=== PATIENT | female | born 1955 | race Caucasian/White ===

== ENCOUNTER → 2018-07-28 | Outpatient (CLI) | payer BC ==
[~2018-07-28] MED LIST: MULTTAB61 PO
== END | disposition home or self-care (01) ==
LOC: LAB 14:32
PROVIDERS: ATTEND Urology
DX: N39.0 Urinary tract infection, site not specified (principal)
CPT/HCPCS: 87086

== ENCOUNTER → 2018-08-03 | Outpatient (CLI) | payer BC | END | disposition home or self-care (01) | LOC: LAB 16:13 | PROVIDERS: ATTEND Urology | DX: N39.0 Urinary tract infection, site not specified (principal) | CPT/HCPCS: 87086 ==

== ENCOUNTER → 2020-10-03 | Outpatient (CLI) | payer OTHER ==
[~2020-10-03] MED LIST changes: +MULT-1018 PO; -MULTTAB61 PO
== END | disposition home or self-care (01) ==
LOC: LAB 18:02
PROVIDERS: ATTEND Nurse Practitioner Family
DX: Z20.828 Contact with and (suspected) exposure to other viral communicable diseases (principal)
CPT/HCPCS: C9803; U0003

== ENCOUNTER → 2020-10-22 | Outpatient (CLI) | payer BC, OTHER ==
[~2020-10-22] VITALS: Ht 30.5 cm; Wt 74.8 kg
[2020-10-22] VITALS (8 sets, daily range): BP systolic 138–162; BP diastolic 78–102
[~2020-10-22] MED LIST changes: +BAMLANIVIMAB 700MG/200ML 200 ML IV ONE
== END | disposition home or self-care (01) ==
LOC: ER 08:54
PROVIDERS: ATTEND Internal Medicine
DX: Z23 Encounter for immunization (principal); U07.1 COVID-19
CPT/HCPCS: M0239; Q0239

== ENCOUNTER → 2023-10-08 | Outpatient (CLI) | payer BC, MEDICARE ==
[~2023-10-08] MED LIST changes: -BAMLANIVIMAB 700MG/200ML 200 ML IV ONE
== END | disposition home or self-care (01) ==
LOC: EEVIPCON → XYW 13:35
PROVIDERS: ATTEND Internal Medicine
DX: R06.02 Shortness of breath (principal); I51.89 Other ill-defined heart diseases
CPT/HCPCS: 93306

== ENCOUNTER 2025-03-31 17:42 | Emergency (ER) | payer BC, MEDICARE ==
[~2025-03-31] VITALS: Ht 162.6 cm; Wt 65.0 kg
--- NOTE | 2025-03-31 18:02 | ED.PDOC ---
History of Present Illness HPI Comments 70-year-old female presents with a chief complaint of bleeding from biopsy site. Patient states that she had a biopsy of a cyst done today and that it was bleeding uncontrollably. Patient had 8 stitches placed bedside. Patient denies any pain from the site. Patient bleeding is now controlled. Chief Complaint: Wound Check Time Seen by MD: 18:00 Primary Care Provider: COREY Perez Notes: Medications, Allergies Allergies: Coded Allergies: Penicillins (Verified Allergy, Unknown, 04/22/16) Home Meds Reported Medications Multiple Vitamin (Multivitamins) Tab, 1 TAB PO DAILY, #90 TAB 3 Refills 04/22/16 Information Source: Patient Mode of Arrival: Ambulatory Severity: Moderate Timing: Minutes Duration: Since onset Prehospital treatment: None Past Medical History PAST MEDICAL HISTORY: Denies Surgical History: Family History Family History: Unknown Social History Smoker: Non-Smoker Alcohol: Denies ETOH Use Drugs: Denies Drug Use Lives In: Home Constitutional: denies: chills, diaphoresis, fatigue, fever, malaise, sweats, weakness, others EENTM: denies: blurred vision, double vision, ear bleeding, ear discharge, ear drainage, ear pain, ear ringing, eye pain, eye redness, hearing loss, mouth pain, mouth swelling, nasal discharge, nose bleeding, nose congestion, nose pain, photophobia, tearing, throat pain, throat swelling, voice changes, others Respiratory: denies: cough, hemoptysis, orthopnea, SOB at rest, shortness of breath, SOB with excertion, stridor, wheezing, others Cardiovascular: denies: chest pain, dizzy spells, diaphoresis, Dyspnea on exertion, edema, irregular heart beat, left arm pain, lightheadedness, palpitations, PND, syncope, others Gastrointestinal: denies: abdomen distended, abdominal pain, blood streaked bowels, constipated, diarrhea, dysphagia, difficulty swallowing, hematemesis, melena, nausea, poor appetite, poor fluid intake, rectal bleeding, rectal pain, vomiting, others Genitourinary: denies: abnormal vagina bleeding, burning, dyspareunia, dysuria, flank pain, frequency, hematuria, incontinence, pain, , vagina discharge, urgency, others Neurological: denies: dizziness, fainting, headache, left sided numbness, left sided weakness, numbness, paresthesia, pre-existing deficit, right sided numbness, right sided weakness, seizure, speech problems, tingling, tremors, weakness, others Musculoskeletal: denies: back pain, gout, joint pain, joint swelling, muscle pain, muscle stiffness, neck pain, others Integumetry: denies: bruises, change in color, change in hair/nails, dryness, laceration, lesions, lumps, rash, wounds, others Allergic/Immunocompromised: denies: Difficulty Healing, Frequent Infections, Hives, Itching, others Hematologic/Lymphatic: denies: anemia, blood clots, easy bleeding, easy bruising, swollen glands, others Endocrine: denies: excessive hunger, excessive sweating, excessive thirst, excessive urination, flushing, intolerance to cold, intolerance to heat, unexplained weight gain, unexplained weight loss, others Psychiatric: denies: anxiety, bipolar disorder, depression, hopeless, panic disorder, schizophrenia, sleepless, suicidal, others All Other Systems: Reviewed and Negative ( PER HPI) Was a procedure done? Was a procedure done?: No Time of 1ST Reevaluation: 18:30 Reevaluation 1ST: Unchanged Patient Education/Counseling: Diagnosis, Treatment, Need For Follow Up Family Education/Counseling: No Family Present Critical Care Note Critical Care Time?: No Stability Stability form required: No Heart Score Heart Score: Heart Score Response (Comments) Value History N/A 0 EKG N/A 0 Age N/A 0 Risk Factors N/A 0 Troponin N/A 0 Total 0 I personally scribed for BILL TEIXEIRA MD ([email or web address]) on 03/31/25 at 18:02. Electronically submitted by Cale Tamez ([email or web address]). I personally scribed for BILL TEIXEIRA MD ([email or web address]) on 03/31/25 at 18:03. Electronically submitted by Cale Tamez ([email or web address]). BILL TEIXEIRA MD Mar 31, 2025 18:02
--- NOTE | 2025-03-31 18:04 | ED.PDOC ---
History of Present Illness HPI Comments 70-year-old female presents with a chief complaint of bleeding from biopsy site. Patient states that she had a biopsy of a cyst done today and that it was bleeding uncontrollably. Patient had 8 stitches placed bedside. Patient denies any pain from the site. Patient bleeding is now controlled. Chief Complaint: Wound Check Time Seen by MD: 18:00 Primary Care Provider: COREY Perez Notes: Medications, Allergies Allergies: Coded Allergies: Penicillins (Verified Allergy, Unknown, 04/22/16) Home Meds Reported Medications Multiple Vitamin (Multivitamins) Tab, 1 TAB PO DAILY, #90 TAB 3 Refills 04/22/16 Information Source: Patient Mode of Arrival: Ambulatory Severity: Moderate Timing: Hours Duration: Since onset Prehospital treatment: None Past Medical History PAST MEDICAL HISTORY: Denies Surgical History: Family History Family History: Unknown Social History Smoker: Non-Smoker Alcohol: Denies ETOH Use Drugs: Denies Drug Use Lives In: Home Constitutional: denies: chills, diaphoresis, fatigue, fever, malaise, sweats, weakness, others EENTM: denies: blurred vision, double vision, ear bleeding, ear discharge, ear drainage, ear pain, ear ringing, eye pain, eye redness, hearing loss, mouth pain, mouth swelling, nasal discharge, nose bleeding, nose congestion, nose pain, photophobia, tearing, throat pain, throat swelling, voice changes, others Respiratory: denies: cough, hemoptysis, orthopnea, SOB at rest, shortness of b reath, SOB with excertion, stridor, wheezing, others Cardiovascular: denies: chest pain, dizzy spells, diaphoresis, Dyspnea on exertion, edema, irregular heart beat, left arm pain, lightheadedness, palpitations, PND, syncope, others Gastrointestinal: denies: abdomen distended, abdominal pain, blood streaked bowels, constipated, diarrhea, dysphagia, difficulty swallowing, hematemesis, melena, nausea, poor appetite, poor fluid intake, rectal bleeding, rectal pain, vomiting, others Genitourinary: denies: abnormal vagina bleeding, burning, dyspareunia, dysuria, flank pain, frequency, hematuria, incontinence, pain, , vagina discharge, urgency, others Neurological: denies: dizziness, fainting, headache, left sided numbness, left sided weakness, numbness, paresthesia, pre-existing deficit, right sided numbness, right sided weakness, seizure, speech problems, tingling, tremors, weakness, others Musculoskeletal: denies: back pain, gout, joint pain, joint swelling, muscle pain, muscle stiffness, neck pain, others Integumetry: denies: bruises, change in color, change in hair/nails, dryness, laceration, lesions, lumps, rash, wounds, others Allergic/Immunocompromised: denies: Difficulty Healing, Frequent Infections, Hives, Itching, others Hematologic/Lymphatic: denies: anemia, blood clots, easy bleeding, easy bruising, swollen glands, others Endocrine: denies: excessive hunger, excessive sweating, excessive thirst, excessive urination, flushing, intolerance to cold, intolerance to heat, unexplained weight gain, unexplained weight loss, others Psychiatric: denies: anxiety, bipolar disorder, depression, hopeless, panic disorder, schizophrenia, sleepless, suicidal, others All Other Systems: Reviewed and Negative ( PER HPI) Physical Exam General Appearance: Moderate Distress, Normal HEENT: Normal ENT Inspection, Pharynx Normal, TMs Normal Neck: Full Range of Motion, Non-Tender, Normal, Normal Inspection Respiratory: Chest Non-Tender, Lungs Clear, No Accessory Muscle Use, No Respiratory Distress, Normal Breath Sounds Cardiovascular: No Edema, No JVD, No Murmur, No Gallop, Normal Peripheral Pulses, Regular Rate/Rhythm Breast Exam: Deferred Gastrointestinal: No Organomegaly, Non Tender, No Pulsatile Mass, Normal Bowel Sounds, Soft Genitalia: Deferred Pelvic: Deferred Rectal: Deferred Extremities: No calf tenderness, Normal capillary refill, Normal inspection, Normal range of motion, Non-tender, No pedal edema Musculoskeletal : Apperance: Normal Neurologic: Alert, bleach analyst II-XII nml as Tested, No Motor Deficits, Normal Affect, Normal Mood, No Sensory Deficits Cerebellar Function: Normal Reflexes: Normal Skin: Dry, Normal Color, Warm, Wounds (Surgical wound eight stitches) Peripheral Pulses: 3+ Radial (R), 3+ Radial (L) Lymphatic: No Adenopathy Was a procedure done? Was a procedure done?: No Differential Dx Considerations may include: Wound check X-Ray, Labs, Meds, VS Patient alert. Recently had excisional biopsy of a cyst in the epigastric region. Vitals stable. Answering all questions. Ambulating. She just had excision biopsy done few hours ago. Went home noticed some bleeding. On examination no active bleeding stitches in place. Able to cleaned the wound pressure dressing. Explained that we will watch for any signs of bleeding prior to discharge. Was told to follow up with her primary care physician. Was told to come back if there is any problem. Time of 1ST Reevaluation: 18:30 Reevaluation 1ST: Improved Patient Education/Counseling: Diagnosis, Treatment, Need For Follow Up Family Education/Counseling: No Family Present Departure 1 Departure Time of Disposition: 18:30 Impression: Primary Impression: Visit for wound check Disposition: 01 HOME / SELF CARE / HOMELESS Condition: Good Discharged With: Self Critical Care Note Critical Care Time?: No Stability Stability form required: No Heart Score Heart Score: Heart Score Response (Comments) Value History N/A 0 EKG N/A 0 Age N/A 0 Risk Factors N/A 0 Troponin N/A 0 Total 0 I personally scribed for VLADIMIR KOROMA MD ([email or web address]) on 03/31/25 at 18:04. Electronically submitted by Cale Tamez ([email or web address]). VLADIMIR KOROMA MD Mar 31, 2025 18:04
[2025-03-31 19:16] VITALS: BP 161/93; PULSE 70; RESP 11; TEMP 98.3; O2SAT 97
[2025-03-31 19:31] LABS: Basophils # (auto) 0.1 10 ^3/uL (0-0.2); Basophils % (auto) 1.2 % (0.0-2.0); Eosinophils # (auto) 0.1 10 ^3/uL (0-0.8); Eosinophils % (auto) 2.9 % (0.0-7.0); Hematocrit 40.4 % (36.0-46.0); Hemoglobin 13.6 g/dL (12.2-16.2); Lymphocytes # (auto) 1.8 10 ^3/uL (0.4-5.4); Lymphocytes % (auto) 36.2 % (10.0-50.0); Mean Corpuscular Hemoglobin 29.7 pg (28.0-32.0); Mean Corpuscular Hgb Conc. 33.8 g/dL (32.0-36.0); Mean Corpuscular Volume 87.8 fL (80.0-100.0); Monocytes # (auto) 0.5 10 ^3/uL (0-1.3); Neutrophils # (auto) 2.6 10 ^3/uL (1.6-8.6); Neutrophils % (auto) 50.7 % (37.0-80.0); Nucleated Red Blood Cells % 0.1 %; Platelet Count (auto) 206 10^3/uL (140-450); Red Cell Distribution Width 13.5 % (11.8-14.3); White Blood Cell 5.1 10^3/uL (4.4-10.8)
[2025-03-31] MEDS: ACETAMINOPHEN 500 MG TAB or CAP PO ONE (19:32)
[2025-03-31] MEDS: LIDOCAINE W/ EPINEPHRINE 1% 20ML VIAL ID ONE (19:50)
[2025-03-31 19:56] LABS: INR 0.99 (0.9-1.15); Partial Thromboplastin Time 29.3 SEC (24.5-34.5); Prothrombin Time 10.5 sec (9.3-11.8)
[2025-03-31 20:00] VITALS: PULSE 63
== END 2025-03-31 22:25 | disposition home or self-care (01) ==
LOC: EEVIPCON 17:42 → ER 17:42
DX: Z48.89 Encounter for other specified surgical aftercare (principal); Z88.0 Allergy status to penicillin; Z86.2 Personal history of diseases of the blood and blood-forming organs and certain disorders involving the immune mechanism
CPT/HCPCS: 36415; 85025; 85610; 85730

== ENCOUNTER → 2025-03-31 | Outpatient (CLI) | payer BC, MEDICARE | END | disposition home or self-care (01) | LOC: LAB 11:20 | PROVIDERS: ATTEND Family Medicine | DX: D48.5 Neoplasm of uncertain behavior of skin (principal) ==

== ENCOUNTER → 2025-05-22 | Day surgery (SDC) | payer MEDICARE ==
[~2025-05-22] VITALS: Ht 162.6 cm; Wt 65.3 kg
[~2025-05-22] MED LIST changes: +ACE3T PO; +ALEN70SO2 OR; +BROM500T2 PO; +BUPIVACAINE 0.5% P/F INJ 10 ML VIAL ONE; +CHOL25CH3 PO; +CLIN150C PO; +CLINDAMYCIN 600MG IV 50 ML IV ONE; +EMPA1TAB PO; +ESCI20TA PO; +MAGN400C3 PO; +MIDAZOLAM HCL 2MG/2ML 2ml VIAL (1mg/ml) IV PRN; +MIDAZOLAM HCL 2MG/2ML 2ml VIAL (1mg/ml) ONE; +MISC500C8 PO; +MORPHINE SULFATE 4 MG/ML SYR/VIAL IV PRN; -MULT-1018 PO; +POVIDONE IODINE 10 % TOPICAL OINT 30GM TOP ONE; +PROPOFOL 10 MG/ML 20 ML IV ONE; +TURM500C3 OR; +ZINC100T5 PO; +ceFAZolin 1GM VL ONE; +fentaNYL CITRATE 100 MCG/2 ML VL ONE
[2025-05-22] MEDS: BUPIVACAINE 0.5% P/F INJ 10 ML VIAL ONE (08:00)
[2025-05-22] MEDS: LIDOCAINE W/ EPINEPHRINE 1% 20ML VIAL ONE (08:00)
[2025-05-22 08:30] VITALS: PULSE 96; RESP 12
--- NOTE | 2025-05-22 08:37 | DVHOP ---
DATE OF SURGERY: 05/22/2025 PREOPERATIVE DIAGNOSIS: Suture granulomas, chest wall incision. POSTOPERATIVE DIAGNOSIS: Suture granulomas, chest wall incision. SURGEON: Vipin Geronimo MD APPLICATIONS DEVELOPMENT CONSULTANT: David Muse NP ANESTHESIA: General, Dr. Lawrence. PROCEDURE: Excision of suture granulomas. DESCRIPTION OF PROCEDURE: A wound previously created by excision of a sebaceous cyst from the anterior chest wall overlying the xiphoid was prepped and draped and infiltrated with 0.25% Marcaine and 0.5% Xylocaine mixture. Subsequently, the wound was excised and submitted including retained sutures. The wound was then pulse lavaged with 1 liter of sterile saline containing clindamycin. Approximation accomplished utilizing Prolene sutures and subcuticular Monocryl suture. Sterile dressing was applied. The patient remained stable throughout the procedure and left the operating room following an accurate needle and sponge count. Her , Remy, was thoroughly informed in the waiting area. MD [place]/KORY TID: [id number] RECEIPT: [id number]
[2025-05-22] MEDS: HYDROmorphone HCL 2 MG/ML VL/or syr IV PRN (08:53)
[2025-05-22] MEDS: hydrALAZINE HCL 20 MG/ML VL IV PRN (09:41)
[2025-05-22] MEDS: ONDANSETRON HCL 4 MG/2 ML VIAL IV ONE (10:27)
[2025-05-22 10:50] VITALS: BP 150/86; PULSE 88; RESP 14; O2SAT 99
== END | disposition home or self-care (01) ==
LOC: SUR 06:18 → EDUNIT# 07:00
PROVIDERS: ATTEND Surgery
DX: L92.8 Other granulomatous disorders of the skin and subcutaneous tissue (principal); T81.89XA Other complications of procedures, not elsewhere classified, initial encounter; I11.0 Hypertensive heart disease with heart failure; I50.9 Heart failure, unspecified; Z98.890 Other specified postprocedural states; Z79.899 Other long term (current) drug therapy; Z98.891 History of uterine scar from previous surgery; Z87.891 Personal history of nicotine dependence
CPT/HCPCS: 11403; 88305; J0360; J1100; J1171; J1956; J2250; J2405; J2704; J3010; J3490; J0690